=== PATIENT | male | born 1980 | race Caucasian/White ===

== ENCOUNTER 2017-01-17 07:40 | Inpatient (IN) ==
[2017-01-17 08:22] LABS: MANUAL DIFF NEEDED? NO
[2017-01-17 08:26] LABS: BASO% 0.2 % (0.0-0.8); EOS# 0.03 X1000 (0.0-0.7); EOS% 0.2 % (0.0-10.0); HEMATOCRIT 47.2 % (42.0-52.0); IMM GRAN# 0.06 X1000 (0.0-0.04); IMM GRAN% 0.3 % (0.0-0.5); LYMPH# 1.67 X1000 (1.2-3.4); LYMPH% 9.4 % (20.5-51.1); MCH 31.3 PG (27-31); MCV 86.9 FL (81-99); MONO# 1.28 X1000 (0.11-0.59); MONO% 7.2 % (1.7-9.3); MPV 9.3 FL (7.4-10.4); NEUT% 82.7 % (42.2-75.2); PLT 284 X1000 (130-400); RBC 5.43 XMIL (4.7-6.1)
[2017-01-17 08:48] LABS: URINE CULTURE NEEDED? NO; URINE MICRO REVIEW NEEDED? NO; URINE SOURCE CLEAN CATCH
[2017-01-17 08:57] LABS: BILIRUBIN URINE NEGATIVE (NEGATIVE); BLOOD URINE NEGATIVE (NEGATIVE); COLOR YELLOW; GLUCOSE URINE NEGATIVE (NEGATIVE); LEUKOCYTES URINE NEGATIVE (NEGATIVE); NITRITE URINE NEGATIVE (NEGATIVE); PROTEIN URINE 30 mg/dL (NEGATIVE); SP GRAVITY URINE 1.025; TURBIDITY URINE CLEAR (CLEAR); UROBILINOGEN URINE NORMAL (NORMAL)
[2017-01-17] MEDS ORDERED: NS 1,000 ML IV ONE ×3 (08:58→09:38)
[2017-01-17 08:59] LABS: UR EPITHELIAL CELLS <10 /HPF (<10); URINE BACTERIA NEGATIVE /HPF; URINE RBC <10 /HPF (<10); URINE WBC <10 /HPF (<10)
[2017-01-17 09:00] LABS: AGAP 23; ALBUMIN 4.9 g/dL (3.5-5.0); ALKALINE PHOSPHATASE 74 U/L (32-122); AMYLASE 18 U/L (20-200); BUN 32 mg/dL (8-22); CALCIUM 10.2 mg/dL (8.8-10.2); CHLORIDE 96 mmol/L (98-107); COSMO 286; GOT 20 U/L (10-34); GPT 19 U/L (10-44); LIPASE 12 U/L (13-60); POTASSIUM 3.7 mmol/L (3.5-5.1); SODIUM 139 mmol/L (136-145); TCO2 20 mmol/L (25-35); TOTAL BILIRUBIN 2.78 mg/dL (0.20-1.00); TOTAL PROTEIN 8.6 g/dL (6.3-8.3)
--- NOTE | 2017-01-17 09:06 | PROVIDER DOCUMENTATION ---
HPI-Abdominal Pain/GI Problem - General Chief Complaint: Nausea/Vomiting Stated Complaint: VOMITING Time Seen by Provider: 01/17/17 08:58 Source: patient Allergies/Adverse Reactions: Patient Allergies Allergy/AdvReac Type Severity Reaction Status Date / Time No Known Allergies Allergy Verified 01/17/17 07:56 Home Medications: Home Medication List Medication Instructions Recorded Confirmed Last Taken Type NK [No Home Medications] 01/17/17 01/17/17 Unknown History - History of Present Illness-ABD Nature of Presenting Problems: Pt has been voming and nausea since Monday. he has had chills/ sweats with vamping, but denies fever. he has had tiny stools. Abdominal Pain Onset Location: reports: generalized abdomen Quality of Pain: reports: fullness Onset/Duration: reports: 4 days ago Review of Systems - Adult - REVIEW OF SYSTEMS - ADULT Constitutional: reports: chills, night sweats. denies: fever Eyes: denies: discharge, blurred vision Ears, Nose, Mouth & Throat: denies: ear pain, nose pain, throat pain Cardiovascular: denies: chest pain, heart murmur, syncope Respiratory: denies: cough, pleurisy Gastrointestinal: reports: abdominal pain, nausea, poor appetite, vomiting Genitourinary: denies: dysuria, frequent UTI's, hematuria Musculoskeletal: denies: bone pain, frequent leg cramps, joint swelling Integumentary: denies: hives, mole changes, rash Neurological: denies: ataxia, numbness, seizure Psychiatric: denies: anxiety, anti-depressant use, emotional problems, insomnia Endocrine: denies: goiter, cold intolerance, heat intolerance Hematologic/Lymphatic: denies: low blood count, lymphedema Allergic/Immunologic: denies: allergic reactions, eczema, frequent infections Past History - Adult - PAST MEDICAL HISTORY-ADULT Review of Records: reports: Nursing Assessment Review, Medications Reviewed Physical Exam-General - PHYSICAL EXAM-ADULT Initial Vital Signs Reviewed: Yes - CONSTITUTIONAL General Appearance: appears well, alert, no apparent distress - EYES Eyes: PERRL/EOMI, pink conjunctivae - HEAD, EARS, NOSE, MOUTH & THROAT HENMT: normocephalic/atraumatic, moist mucous membranes, normal ENT inspection - NECK Neck: non-tender, full range of motion, supple - RESPIRATORY Respiratory: chest non-tender, lungs clear, normal breath sounds, no pleuratic chest pain, no respiratory distress, no accessory muscle use - CARDIOVASCULAR Cardiovascular: normal peripheral pulses, regular rate, rhythm, no edema, no gallop, no JVD, no murmur - GASTROINTESTINAL (ABDOMEN) Abdominal Exam: normal bowel sounds, soft, no organomegaly, no pulsatile mass, other (vague suggestion of RLQ pain) - LYMPHATIC Lymphatic: no adenopathy - MUSCULOSKELETAL Back Exam: normal inspection, no CVA tenderness, no vertebral tenderness Extremity: normal range of motion, non-tender, normal gait - SKIN Integumentary: normal color, normal turgor, warm/dry - NEUROLOGIC 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, grossly normal, no motor/sensory deficits - PSYCHIATRIC Psych/Mental Status: normal mood/affect, normal thought content, normal thought process, oriented x 3 Progress - PLAN OF CARE/RESULTS Progress/Plan/Lab Results: Vital Signs - 8 hr 01/17/17 07:47 Temperature 98.3 F Pulse Rate 115 H Respiratory Rate 18 Blood Pressure 119/83 O2 Sat by Pulse Oximetry 98 Laboratory Results - last 24 hr 01/17/17 01/17/17 01/17/17 08:14 08:14 08:38 WBC 17.79 H RBC 5.43 Hgb 17.0 Hct 47.2 MCV 86.9 MCH 31.3 H MCHC 36.0 RDW Std Deviation 12.5 Plt Count 284 MPV 9.3 Immature Gran % (Auto) 0.3 Neut % (Auto) 82.7 H Lymph % (Auto) 9.4 L [place] % (Auto) 7.2 Eos % (Auto) 0.2 Baso % (Auto) 0.2 Immature Gran # (Auto) 0.06 H Neut # (Auto) 14.71 H Lymph # (Auto) 1.67 [place] # (Auto) 1.28 H Eos # (Auto) 0.03 Baso # (Auto) 0.04 Sodium 139 Potassium 3.7 Chloride 96 L Carbon Dioxide 20 L Anion Gap 23 BUN 32 H Creatinine 1.0 Estimated GFR/1.73 m2 > 60 BUN/Creatinine Ratio 32 Glucose 125 H Calculated Osmolality 286 Calcium 10.2 Total Bilirubin 2.78 H AST 20 ALT 19 Alkaline Phosphatase 74 Total Protein 8.6 H Albumin 4.9 Globulin 3.7 Albumin/Globulin Ratio 1.3 Amylase 18 L Lipase 12 L Urine Source CLEAN CATCH Urine Color YELLOW Urine Turbidity CLEAR Urine pH 6.0 Ur Specific [place] 1.025 Urine Protein 30 A Ur Glucose (Stick) NEGATIVE Ur Ketones (Stick) 20 A Urine Blood NEGATIVE Urine Nitrite NEGATIVE Urine Bilirubin NEGATIVE Urobilinogen Dipstick NORMAL Urine Leukocytes NEGATIVE Urine WBC (Auto) <10 Urine RBC (Auto) <10 U Epithel Cells (Auto) <10 Urine Bacteria (Auto) NEGATIVE Orders Category Date Time Status Saline Loc DIRECTED Care 01/17/17 07:57 Active NPO Diet 01/17/17 07:57 Active AMYLASE [CHEM] Stat Lab 01/17/17 08:14 Received CBC WITH ELECTRONIC DIFF [HEME] Stat Lab 01/17/17 08:14 Completed COMPREHENSIVE METABOLIC PANEL [CHEM] Stat Lab 01/17/17 08:14 Received LIPASE [CHEM] Stat Lab 01/17/17 08:14 Received URINALYSIS W/POSS RFLX CULT-1 [URINALYSIS] Stat Lab 01/17/17 08:38 Results Ns 1000 ml IV Bolus X1 Med 01/17/17 08:58 Ordered 0.9% Sodium Chloride Inj [Ns] 1,000 ml IV 999 mls/hr Result Diagrams: 01/17/17 08:14 01/17/17 08:14 - CT/MRI 1 CT Study: Abdomen, Pelvis Impression: Abnormal, See EMR Report (pneumomediastinum, possilbe pneumothorax, nl appy/ GB) 2 CT Study: Abdomen, Pelvis, Thorax Impression: See EMR Report (no perforated viscus detected, so assumed that it is sealed) - CONSULTS/PCP/HOSPITALIST Notification #1 *Consult/PCP/Hospitalist*: Dr Chapman Time Discussed: 11:06 (discussed ct imaging that he requested) #2 Consult: Dr chapman wants to admit to himself and start zosyn and diflucan Time Discussed: 12:00 Departure - Departure Time of Disposition Decision: 12:43 DIAGNOSIS: Perforated viscus Disposition: ADMITTED INPATIENT 09 Certified Medical Emergency: Emergent Condition: Stable Referrals and Follow-Ups: None,PCP [Primary Care Provider] - - Critical Care Note This patient required my direct & personal management of CC.: No
--- NOTE | 2017-01-17 09:57 | Diag Imaging Result Document ---
PROCEDURE NAME: CHEST-2 VIEWS - 01/17/2017 FRONTAL AND LATERAL CHEST, TWO VIEWS: FINDINGS: The lungs are hyperexpanded. There is increased AP diameter to the chest. The heart is not enlarged. The vessels are not distended. No pleural effusions. No infiltrates. There is subcutaneous emphysema in the lower neck and overlying the upper chest. I do not identify a pneumothorax. IMPRESSION: Abnormal exam with subcutaneous air in the lower neck and overlying the upper chest. Results were discussed with Dr. Brown in the emergency room at 9:27 a.m.
--- NOTE | 2017-01-17 11:03 | Diag Imaging Result Document ---
PROCEDURE NAME: CT ABD/PELVIS W/ IV CONT ONLY - 01/17/2017 CT ABDOMEN AND PELVIS WITH IV CONTRAST ONLY: TECHNIQUE: Exam performed with intravenous contrast only per request of the referring provider. A dose reduction protocol was used. No comparison exam. FINDINGS: There is apparent pneumomediastinum at the base of the chest near the esophagus and descending aorta. There are small retroperitoneal air bubbles superiorly on the left adjacent to the psoas muscle. There is no source for the retroperitoneal air apparent in the abdomen or pelvis, and the air may have dissected inferiorly from the mediastinum. There is a possible tiny loculated pneumothorax at the posterior medial left base. There are no substantial abnormalities of the liver, spleen, adrenal glands, or pancreas identified. The gallbladder is mildly distended but there are no calcified gallstones or pericholecystic inflammatory changes seen. There is no biliary ductal dilatation identified. The bilateral kidneys enhance homogeneously. There is no hydronephrosis or perinephric inflammation identified. There are no substantially enlarged lymph nodes identified. There is no evidence of bowel obstruction. The appendix has air in the lumen and shows no evidence of inflammation. There is no abscess identified. There is no free intraperitoneal air seen. There is no free fluid identified. IMPRESSION: 1. Pneumomediastinum at posterior base of chest. Small air bubbles adjacent to the superior left psoas muscle which likely have dissected inferiorly from the pneumomediastinum. Possible tiny loculated pneumothorax at the posterior medial left base. If further imaging evaluation with regards to the pneumomediastinum is desired, CT thorax is recommended. 2. Normal appearing appendix. No bowel obstruction. No abscess. No free air. 3. Mildly distended gallbladder. No calcified gallstones or pericholecystic inflammation seen. [facility]
[2017-01-17] MEDS ORDERED: ZOFRAN IV PRN (12:06)
[2017-01-17] MEDS ORDERED: MORPHINE IV PRN (12:06)
[2017-01-17] MEDS ORDERED: PHENERGAN IM PRN (12:06)
[2017-01-17] MEDS ORDERED: ZOSYN 4.5 GM/NS 4.5 GM/100 ML IVPB IV ONE (12:08)
[2017-01-17] MEDS ORDERED: DIFLUCAN 100 MG/NS 100 MG/50 ML IVPB IV SCH (12:15)
--- NOTE | 2017-01-17 12:39 | Diag Imaging Result Document ---
PROCEDURE NAME: CT THORAX W/O CONTRAST - 01/17/2017 CT THORAX WITHOUT CONTRAST: FINDINGS: The patient drank water soluble oral contrast immediately before the scan was obtained. There is extensive pneumomediastinum. This is most prominent at the mid and upper mediastinum. There is subcutaneous emphysema, which is most extensive at the lower neck. There is no extravasated contrast from the esophagus identified. There is no mediastinal fluid collection identified. There is a tiny pneumothorax at the posterior medial left base, which likely has dissected from the pneumomediastinum. There is no other pneumothorax identified. There is no pleural effusion or pericardial fluid seen. There are calcified perihilar granulomas and calcified hilar lymph nodes on the right from old granulomatous disease. There is a nonspecific 4 mm noncalcified nodule at the posterolateral left lower lobe (image 111). There are no abnormally enlarged noncalcified mediastinal lymph nodes identified. IMPRESSION: 1. Extensive pneumomediastinum, particularly at the mid and upper mediastinum. 2. Subcutaneous emphysema, which is most extensive at the lower neck. 3. There is no indication of esophageal perforation. There is no mediastinal or pleural fluid seen. 4. Tiny loculated pneumothorax at posterior medial left base, which has likely dissected from the pneumomediastinum. 5. No pneumonia. 6. Nonspecific 4 mm noncalcified nodular density at posterolateral left lower lobe (image 111). Follow up per Fleischner Society guidelines is recommended. Results discussed in person with Dr. Dexter Ivey at approximately 11:50 p.m. on January 17, 2017. [facility]
--- NOTE | 2017-01-17 13:09 | HISTORY AND PHYSICAL ---
DATE OF ADMISSION: 01/17/2017 HISTORY OF PRESENT ILLNESS: This is a 36-year-old female who presents with nausea and vomiting since Monday, approximately 4 days of vomiting and cough. He continually felt worse prompting admission to the emergency department. He has had some cough associated with this as well. A chest x-ray showed some subcutaneous air in the cervical region. This was all by abdominal CT and showed small area of pneumomediastinum in the distal esophagus. Hemodynamically stable in emergency department. He states on further questioning, that he continued to have normal bowel function, but states approximately once a year he does vomit for 10 days or so for unclear reasons and has never really been evaluated by this. MEDICAL HISTORY: Negative. SURGICAL HISTORY: Left arm surgery related to a fracture. SOCIAL HISTORY: Quit smoking approximately 6 years ago. Denies alcohol or drugs. He works unloading trucks here in town. FAMILY HISTORY: Negative for cancer. REVIEW OF SYSTEMS: Ten point negative except as mentioned in HPI. PHYSICAL EXAMINATION: Vital Signs: Temperature is 98.3 degrees, pulse 94, blood pressure 119/77, O2 saturation 100% on room air. Weight is 125 pounds, 5 foot 8 inches. General: This is a thin appearing white male in no acute distress. HEENT: There is no scleral icterus, cervical masses or lymphadenopathy. Neck: There is some faint crepitus in the anterior neck. Cardiovascular: Normal rate, regular rhythm. Pulmonary: No increased work of breathing with equal chest rise bilaterally. No subcutaneous air noticed over his chest. Abdomen: Soft, nontender, nondistended. I feel a lymph node. There is no cervical, supra and infra or axillary lymphadenopathy. Integument: Skin is otherwise warm, dry. There is no lower extremity edema and his extremities are well perfused. LABS: Reviewed. White count was 17 he got here. Hematocrit was 47, platelets 285,000. Creatinine is 1.0, glucose 125. Bilirubin is mildly elevated 2.78. AST and ALT are normal. Alkaline phosphatase normal. Amylase and lipase are normal. Urinalysis has ketones, but negative for nitrates and leukocytes. CT of the chest taken after administration of oral contrast shows substantial pneumomediastinum, but no evidence of esophageal perforation. A CT of the abdomen and pelvis shows pneumomediastinum in the posterior base of the chest. There are some bubbles in psoas muscle with possible tiny loculated pneumothorax, but most likely extrapleural. Normal appendix. No bowel obstruction. No abscess. No free air. Mildly distended gallbladder but no gallstones or stranding noted. 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 Quite dehydrated on exam. Clinically he is nonseptic-appearing. His exam is benign. He is in no respiratory distress. I do not see any evidence of contrast leak on his esophagram study, but he does have extensive pneumomediastinum. Antibiotics are being administered in the emergency department. We will rangel to admit him in my service with strict NPO. Continue on Zosyn and Diflucan for upper or pharyngeal coverage. We will repeat labs, continue serial exams and repeat chest x-ray in the morning and monitor him for continued improvement. We will also repeat contrast upper GI esophagram prior to initiating any oral intake. This will be at least 48-72 hours from now. We will continue to monitor him closely. cc: Meli Ivey MD
[2017-01-17 14:00] LABS: AGAP 17; ALBUMIN 4.2 g/dL (3.5-5.0); ALKALINE PHOSPHATASE 61 U/L (32-122); BUN 27 mg/dL (8-22); CALCIUM 9.3 mg/dL (8.8-10.2); CHLORIDE 101 mmol/L (98-107); COSMO 281; GOT 15 U/L (10-34); GPT 15 U/L (10-44); POTASSIUM 4.3 mmol/L (3.5-5.1); SODIUM 138 mmol/L (136-145); TCO2 20 mmol/L (25-35)
[2017-01-17] MEDS ORDERED: DIFLUCAN 400 MG/NS 400 MG/200 ML IVPB IV SCH (14:00)
[2017-01-17] MEDS: ZOSYN 3.375 GM/NS 3.375 GM/50 ML IVPB IV SCH ×3 (14:46→23:51)
[2017-01-17] MEDS: LR 1,000 ML IV SCH ×2 (18:08→23:35)
[2017-01-18] MEDS: LR 1,000 ML IV SCH ×4 (02:50→21:48)
[2017-01-18] MEDS: ZOSYN 3.375 GM/NS 3.375 GM/50 ML IVPB IV SCH ×3 (06:12→21:48)
[2017-01-18 07:25] LABS: MANUAL DIFF NEEDED? NO
--- NOTE | 2017-01-18 07:47 | Diag Imaging Result Document ---
PROCEDURE NAME: CHEST-1 VIEW - 01/18/2017 SINGLE FRONTAL RADIOGRAPH OF THE CHEST: COMPARISON: 01/17/2017. FINDINGS: There is stable subcutaneous emphysema at the base of the neck bilaterally. The lungs are clear. There is no evidence of pneumothorax or pleural fluid collection. Cardiac silhouette and central vasculature are grossly unremarkable. IMPRESSION: Stable chest.
[2017-01-18 07:58] LABS: BASO% 0.9 % (0.0-0.8); EOS# 0.21 X1000 (0.0-0.7); EOS% 1.8 % (0.0-10.0); HEMATOCRIT 40.3 % (42.0-52.0); HEMOGLOBIN 13.9 g/dL (14.0-18.0); IMM GRAN# 0.05 X1000 (0.0-0.04); IMM GRAN% 0.4 % (0.0-0.5); LYMPH# 3.67 X1000 (1.2-3.4); LYMPH% 31.7 % (20.5-51.1); MCH 31.4 PG (27-31); MCHC 34.5 g/dL (33-37); MONO# 1.21 X1000 (0.11-0.59); MONO% 10.5 % (1.7-9.3); MPV 9.5 FL (7.4-10.4); NEUT% 54.7 % (42.2-75.2); PLT 223 X1000 (130-400); RBC 4.43 XMIL (4.7-6.1)
--- NOTE | 2017-01-18 12:38 | PROGRESS NOTE ---
DATE: 01/18/2017 SUBJECTIVE: Feels okay. Some fullness in his neck but no pain. No shortness of breath. No abdominal pain. OBJECTIVE: No fevers overnight. Temperature is 98.4 degrees, pulse 59, blood pressure 119/70, O2 saturation 100% on room air.General: He is a thin white male in no acute distress. HEENT Exam: There is some crepitus in his neck but no voice changes. No erythema. No edema. Pulmonary: No increased work of breathing. Cardiovascular: Normal rate, regular rhythm. Abdomen: Soft, nontender, nondistended. Integument: Warm, dry without jaundice. LABS: White count is 11, hematocrit 40. Chest x-ray shows some subcu air in the neck but no pneumothorax. No effusion. ASSESSMENT AND PLAN: This is a 36-year-old white male who presents with pneumomediastinum subcu air in his neck. We will continue strict NPO, IV antibiotics with Zosyn and Diflucan. His esophagram did not show any evidence of leak of contrast. 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 This is resolved with him being NPO and with antiemetics. Will continue hydration and IV antibiotics as he is clinically improving and his chest x-ray showed no development of an effusion. Will ultimately need repeat esophagram prior to advancing diet but we will obtain this in the next 24-48 hours. cc: Meli Ivey MD [facility]
[2017-01-18] MEDS: SODIUM CHLORIDE 0.9% INJ SCH (13:30)
[2017-01-18] MEDS: LOVENOX SUBQ SCH (13:30)
[2017-01-18] MEDS: PROTONIX IV SCH (13:30)
[2017-01-18] MEDS: DIFLUCAN 100 MG/NS 100 MG/50 ML IVPB IV SCH (14:59)
[2017-01-19] MEDS: SODIUM CHLORIDE 0.9% INJ SCH ×3 (01:48→22:39)
[2017-01-19] MEDS: ZOSYN 3.375 GM/NS 3.375 GM/50 ML IVPB IV SCH ×4 (01:48→22:39)
[2017-01-19] MEDS: PROTONIX IV SCH ×3 (01:48→22:39)
[2017-01-19] MEDS: LR 1,000 ML IV SCH (03:58)
[2017-01-19] MEDS: D5 1/2 NS + KCL 20 MEQ 1,000 ML IV SCH ×2 (06:51→16:07)
[2017-01-19 07:18] LABS: MANUAL DIFF NEEDED? NO
[2017-01-19 07:37] LABS: BASO% 0.7 % (0.0-0.8); EOS# 0.48 X1000 (0.0-0.7); EOS% 5.1 % (0.0-10.0); HEMATOCRIT 42.2 % (42.0-52.0); HEMOGLOBIN 14.8 g/dL (14.0-18.0); IMM GRAN# 0.03 X1000 (0.0-0.04); IMM GRAN% 0.3 % (0.0-0.5); LYMPH% 25.5 % (20.5-51.1); MCH 31.4 PG (27-31); MCHC 35.1 g/dL (33-37); MCV 89.4 FL (81-99); MONO# 0.72 X1000 (0.11-0.59); MONO% 7.6 % (1.7-9.3); MPV 9.1 FL (7.4-10.4); NEUT% 60.8 % (42.2-75.2); PLT 212 X1000 (130-400); RBC 4.72 XMIL (4.7-6.1)
[2017-01-19 07:55] LABS: AGAP 16; BUN 14 mg/dL (8-22); CALCIUM 8.8 mg/dL (8.8-10.2); CHLORIDE 102 mmol/L (98-107); COSMO 282; POTASSIUM 3.6 mmol/L (3.5-5.1); SODIUM 142 mmol/L (136-145); TCO2 24 mmol/L (25-35)
--- NOTE | 2017-01-19 08:16 | Diag Imaging Result Document ---
PROCEDURE NAME: CHEST-1 VIEW - 01/19/2017 SINGLE FRONTAL RADIOGRAPH OF THE CHEST: COMPARISON: 01/18/2017. FINDINGS: The lungs are grossly clear. There is no discrete pleural fluid collection or pneumothorax. The cardiomediastinal silhouette and upper airway are grossly unremarkable. IMPRESSION: No evidence of acute chest pathology.
--- NOTE | 2017-01-19 12:34 | PROGRESS NOTE ---
DATE: 01/19/2017 SUBJECTIVE: He feels well. No chest pain. No neck pain. No dysphagia. No abdominal pain. OBJECTIVE: No fevers. Temperature is 97.8 degrees this morning. Pulse is 54, blood pressure 110/65. Oxygen saturation 98% on room air. General: He is alert in no acute distress. HEENT: I see no cervical swelling. There is no crepitus this morning. There are no masses, and there is no erythema. Cardiovascular: Normal rate and regular rhythm. Pulmonary: No increased work of breathing. He is on room air. Abdomen is soft, nontender, nondistended. Integument is, otherwise warm and dry. LABORATORY DATA: White count is 7.9, hematocrit is 42. Creatinine 0.8, glucose is 75. Chest x-ray is clear with no effusions. I do not see any subcutaneous air, and I do not see a pneumothorax. ASSESSMENT AND PLAN: A 36-year-old male with pneumomediastinum and subcutaneous air in his neck most likely related to Boerhaave syndrome from upper gastrointestinal illness causing prolonged nausea and vomiting. His labs were all normalizing. His white count is now normal. No fevers. His exam is benign. We will repeat a swallow study today. If this looks okay, we will give him clear liquids later today. Otherwise, I think he is clinically improving with antibiotics. We will continue to follow along. cc: Meli Ivey MD
--- NOTE | 2017-01-19 12:39 | Diag Imaging Result Document ---
PROCEDURE NAME: BA SWALLOW-ESOPHAGUS - 01/19/2017 ESOPHAGRAM: The fluoroscopy time is 59 seconds. The radiation dose is 555.9 cGy cm square. Exam performed using water soluble oral contrast as requested by the referring provider. There is no esophageal mass or stricture identified. There is no contrast extravasation from the esophagus identified. IMPRESSION: No evidence of esophageal perforation.
[2017-01-19] MEDS: LOVENOX SUBQ SCH (12:53)
[2017-01-19] MEDS: DIFLUCAN 100 MG/NS 100 MG/50 ML IVPB IV SCH (12:54)
[2017-01-20] MEDS: D5 1/2 NS + KCL 20 MEQ 1,000 ML IV SCH ×2 (02:01→12:24)
[2017-01-20] MEDS: ZOSYN 3.375 GM/NS 3.375 GM/50 ML IVPB IV SCH ×2 (04:24→09:07)
[2017-01-20] MEDS: PROTONIX IV SCH (09:04)
[2017-01-20 11:41] VITALS: BP 144/69
[2017-01-20] MEDS: LOVENOX SUBQ SCH (12:06)
[2017-01-20] MEDS: DIFLUCAN 100 MG/NS 100 MG/50 ML IVPB IV SCH (12:06)
--- NOTE | 2017-01-20 14:50 | DISCHARGE SUMMARY ---
ADMISSION DATE: 01/17/2017 DISCHARGE DATE: 01/20/2017 SUBJECTIVE: Feels well. No fevers. No dysphagia. No chest pain. No shortness of breath. Tolerated clear liquids last night. OBJECTIVE: No fevers. No tachycardia. Blood pressure is 135/94, oxygen saturation 100%. Neck was without crepitans. There was no pain. Equal chest rise. Abdomen is soft, nontender. Skin was warm and dry. DIAGNOSTIC DATA: No new labs this morning. ASSESSMENT AND PLAN: This is a 36-year-old male with some pneumomediastinum, possibly Boerhaave syndrome after an episode of vomiting. He is clinically doing very well. White count is normal. We will give him a full liquid diet. I have discussed with him his diet going home. We have recommended full liquids and at the most a GI soft diet. I have given him a prescription for 2 weeks of Augmentin and Diflucan. See me back in 2 weeks at that time and will likely refer him to GI Medicine for workup of this cyclical vomiting that he has, as a CT scan did not show any identification. DIET: Full liquid, at most GI soft, low residual diet. ACTIVITY: As tolerated. cc: Meli Ivey MD
== END 2017-01-20 14:21 | disposition home or self-care (01) ==
LOC: ED 07:40 → 4N 14:03
PROVIDERS: ADMIT Surgery; ATTEND Surgery